=== PATIENT | female | born 1985 | race Hispanic/Latino ===

== ENCOUNTER 2023-04-26 18:21 | Emergency (ER) | payer MEDICAID ==
[~2023-04-26] VITALS: Ht 162.6 cm; Wt 68.0 kg
[2023-04-26 21:27] LABS: BASOPHILS # (AUTO) 0.04 K/uL (0.00-0.20); BASOPHILS % (AUTO) 0.4 % (0.0-5.0); HEMATOCRIT 32.8 % (36-48); IMMATURE GRANULOCYTE ABSOLUTE 0.03 K/uL (0-1); LYMPHOCYTES # (AUTO) 1.9 K/uL (1.0-4.8); LYMPHOCYTES % (AUTO) 19.5 % (21.0-51.0); MEAN CORPUSCULAR HEMOGLOBIN 31.4 pg (27.0-33.0); MEAN CORPUSCULAR HGB CONC 34.5 g/dL (32.0-36.0); MEAN CORPUSCULAR VOLUME 91.1 fL (79-99); MONOCYTES # (AUTO) 0.7 K/uL (0.1-1.0); MONOCYTES % (AUTO) 7.3 % (3.0-13.0); NEUTROPHILS # (AUTO) 6.9 K/uL (1.8-7.7); NEUTROPHILS % (AUTO) 72.5 % (40.0-77.0); PLATELET COUNT (AUTO) 326 K/uL (130-400); RED CELL DISTRIBUTION WIDTH 13.1 % (11.0-15.5); WHITE BLOOD COUNT (AUTO) 9.5 K/uL (4.8-10.8)
[2023-04-26] MEDS ORDERED: MORPHINE 4 MG SYG IM ONE (21:30)
[2023-04-26] MEDS ORDERED: ONDANSETRON 4MG INJ IVP ONE (21:30)
[2023-04-26 21:38] LABS: CREATININE 0.8 mg/dL (0.5-1.5); POTASSIUM 3.5 mmol/L (3.5-5.1)
[2023-04-26 21:39] LABS: INR < 0.93 (0.85-1.15); PROTHROMBIN TIME 10.7 SEC (9.6-11.6)
[2023-04-26 21:41] LABS: PARTIAL THROMBOPLASTIN TIME 27.6 SEC (26.3-35.5)
[2023-04-26 21:42] LABS: ALBUMIN 3.6 g/dL (3.5-5.0); BILIRUBIN,TOTAL 0.5 mg/dL (0.2-1.0); TOTAL PROTEIN, SERUM 7.1 g/dL (6.0-8.3)
[2023-04-26] MEDS ORDERED: IBUP-1493 PO (22:17)
[2023-04-26] MEDS ORDERED: ACET-2079 PO (22:36)
[2023-04-26 22:47] VITALS: BP 118/72; PULSE 79; RESP 18; O2SAT 98
== END 2023-04-26 22:46 | disposition home or self-care (01) ==
LOC: EDH 18:21
DX: S82.302A Unspecified fracture of lower end of left tibia, initial encounter for closed fracture (principal); W18.39XA Other fall on same level, initial encounter; Y93.89 Activity, other specified; Y92.89 Other specified places as the place of occurrence of the external cause; Y99.8 Other external cause status
CPT/HCPCS: 99284; 96374; 80053; 84703; 84702; 85025; 85610; 85730; 86850; 86900; 86901; 36415; 73610; 73630; 73590; 96372; J2405; J2270

== ENCOUNTER → 2024-01-25 | Outpatient (CLI) | payer MEDICAID ==
[~2024-01-25] MED LIST: ACET-2079 PO; IOHEXOL 350 MG/ML 100ML INFUS..BTL IV ONE
== END | disposition home or self-care (01) ==
LOC: RAH 11:07
PROVIDERS: ATTEND Surgery Surgical Oncology
DX: K57.30 Diverticulosis of large intestine without perforation or abscess without bleeding (principal); R16.0 Hepatomegaly, not elsewhere classified; I70.90 Unspecified atherosclerosis; Z93.3 Colostomy status; Z90.49 Acquired absence of other specified parts of digestive tract
CPT/HCPCS: 74177; Q9967

== ENCOUNTER 2024-10-09 16:54 | Emergency (ER) | payer MEDICAID ==
[~2024-10-09] VITALS: Ht 162.6 cm; Wt 65.8 kg
[~2024-10-09 16:54] MED LIST changes: -IOHEXOL 350 MG/ML 100ML INFUS..BTL IV ONE
--- NOTE | 2024-10-09 18:23 | ERN ---
ED Note History of Present Illness Stated Complaint: RIGHT TOES PAIN Chief Complaint: Toe Pain/Injury Time Seen by MD: 17:05 Dictation: History of present illness: 38-year-old female with past medical history of diverticulitis with perforation status post colostomy presented to ED with complaints of right foot swelling of 1 day duration. As per the patient her right foot hit the furniture yesterday and her 2nd toe was deviated to the right side which she straightened. Right foot has been progressively swelling over time. At present she has a right foot pain of 7/10 in intensity, she feel numbness of right foot. Allergies: Coded Allergies: No Known Drug Allergies (Verified Allergy, 05/21/12) Home Meds Active Scripts Acetaminophen with Codeine (Acetaminophen-Cod #3 Tablet) 300 Mg-30 Mg Tablet, 1 EACH PO TID for pain, #30 TAB Prov:YESSI SORENSEN PAC 04/26/23 Past Medical History Past Medical History: No Pertinent History Surgical History: None Review of System Dictation REVIEW OF SYSTEMS Positive for right foot trauma, right hip was swollen CONSTITUTIONAL: Denies fevers, chills, or night sweats. No unintentional weight loss reported. ENT: No hearing loss, otalgia, otorrhea, rhinitis, rhinorrhea, hoarseness, or sore throat. CARDIOVASCULAR: Denies any exertional angina, dyspnea on exertion, orthopnea, paroxysmal nocturnal dyspnea, palpitations claudication. PULMONARY: Denies any shortness of breath, cough, phlegm / sputum, hemoptysis, pleuritic chest pain. SLEEP: Denies morning headaches, daytime somnolence or napping. Denies difficulty falling asleep, staying asleep, waking from sleep. Denies knowledge of snoring. GASTROINTESTINAL: Denies any type of dysphagia to either liquids or solids. Denies nausea, vomiting, abdominal pain, diarrhea, constipation, blood in stools . NEUROLOGICAL: Denies headache, motor weakness, sensory deficit, vertigo / spinning sensation, gait abnormalities, or tremors. GENITOURINARY: Denies frequency, urgency, nocturia, hematuria or incontinence, low urinary stream, straining to void, urinary intermittency or hesitancy ENDOCRINOLOGY: Denies polyuria, polydipsia, polyphagia or heat / cold intolerance. HEMATOLOGY: Denies thrombophilia / previous clots, or coagulopathy / bleeding disorders. ONCOLOGIC: Denies personal history of malignancy. DERMATOLOGIC: Denies rashes or pruritus. PSYCHIATRIC: Denies any suicidal or homicidal ideation. Denies hallucinations. Initial Vital Sign VS Vital Signs Date Time Temp Pulse Resp B/P (MAP) Pulse Ox O2 Delivery O2 Flow Rate FiO2 10/09/24 16:55 98.1 79 16 122/46 100 Room Air 0 Physical Exam Dictation PHYSICAL EXAM GENERAL APPEARANCE: Well nourished . Awake and alert. Oriented to time, place and person. No acute cardiopulmonary distress. HEENT: Head normocephalic , atraumatic. Sclera anicteric . Pupils are round and reactive. Extraocular movements intact . No conjunctival injection. No nasal congestion. No throat congestion .Oral mucosa moist. NECK: Supple. No JVD. No thyromegaly. No submental, submandibular, pre- /postauricular, occipital or supraclavicular lymphadenopathy. No carotid bruits. CHEST: Normal chest expansion. No Telemetry. LUNGS: Clear to auscultation bilaterally . No rales, rhonchi or any wheezing. Equal tactile fremitus. Resonant to percussion . CARDIOVASCULAR: Regular rate and rhythm. S1 and S2 normal. No rubs, murmurs or gallops. ABDOMEN: Soft, nontender, and nondistended. There is no rebound tenderness, voluntary guarding, or rigidity. Colostomy bag in place NEUROLOGICAL: Cranial nerves II-XII grossly intact. Motor is 5/5 in bilateral upper and lower extremities . No sensory deficits. EXTREMITIES: No edema, No cyanosis , No clubbing. Good capillary refill. SKIN: No skin breakdown. No rashes or lesions . PSYCHIATRY: Normal affect .No auditory or visual hallucinations. Normal speech. No dysarthria. Local examination of right foot: Right foot swelling up to the ankle, nonpitting. Mottling of the skin present. cold to touch . Right Dorsalis pedis arterial , right and left malleolar arterial pulse not palpable. Violaceous discoloration of right 2nd toe. Results (Laboratory/Radiology) X-RAY Comment: Right foot shows 2nd proximal phalanges displaced fracture, 3rd and 4th metatarsal shaft nondisplaced fractures ED Course ED Course Orders Procedure Category Date Status Time Foot Comp 3+Vws Rt RAD 10/09/24 Taken 17:21 Ketorolac PHA 10/09/24 Complete Tromethamine 30mg/Ml 17:30 ,Urine Test LAB 10/09/24 Logged 17:21 Cardiac Panel LAB 10/09/24 In Process 17:21 *Nursing CPOE 10/09/24 Transmitted Communication: 18:05 Current Medications Medications (Trade) Dose Ordered Sig/Hamzah Route PRN Reason Start Time Stop Time Status Last Admin Dose Admin Ketorolac Tromethamine (toRADol) 30 mg ONCE ONCE IVP 10/09/24 17:30 10/09/24 17:31 DC Vital Signs Date Time Temp Pulse Resp B/P (MAP) Pulse Ox O2 Delivery O2 Flow Rate FiO2 10/09/24 16:55 98.1 79 16 122/46 100 Room Air 0 Medical Decision Making MDM Differential diagnosis : Right 2nd toe fracture, compartment syndrome right foot Rationale: Tests considered and ordered secondary to shared decision making include: I will re-evaluate the patient after treatment and diagnostic exams have returned to determine whether they require further testing, can be safely discharged home, or need admission for further treatment and evaluation. Given the social determinants of health affecting care, including literacy, access to medical care, prescription drug management, and [id number] drugs, I will ensure that treatment plans are tailored accordingly. There are no social concerns with this patient. Risk of complication and/or morbidity or mortality of patient management: None Need for hospitalization: Patient does not meet criteria for hospitalization. Need for emergency major/minor surgery: No Prescription drug management Prescriptions will include symptomatic care Medications-Per medication reconciliation Previous outside records reviewed: Old ER visits. Patient's prior external medical records from other ER visits were reviewed by me as indicated. Prior testing and results from previous visits were reviewed. Prior tests were taken into account with medical decision making and resource utilization, independent historian/historians were used to obtain complete medical history. I independently interpreted the test that were performed, results were reviewed by me and considered findings on radiology. Medical management and examination interpretation discussions was done by me with other qualified healthcare professionals as indicated for the patient's care. Revaluation: Patient presented with right foot swelling. X-ray right foot showed multiple fractures. Patient is placed on a hard rt foot boot . She is required to follow up with orthopedician as outpatient Disposition : Discharge home DX & DISP Disposition: Discharge Departure Impression: Primary Impression: Fracture of second toe, right, closed Additional Impression: Fracture of metatarsal of right foot, closed Condition: Stable Scripts Meloxicam (Meloxicam) 15 Mg Tablet 15 MG PO DAILY PRN for PAIN for 10 Days, #10 TAB Prov: JONI ARMSTRONG DO 10/09/24 Hydrocodone/Acetaminophen (Hydrocodon-Acetaminophen 5-325) 5 Mg-325 Mg Tablet 1 TAB PO TIDP PRN for pain for 5 Days, #20 TAB 0 Refills Prov: JONI ARMSTRONG DO 10/09/24 Additional Instructions: You have fractures in your 2nd, 3rd, and 4th toes. Wear the hard boot that you have been provided. You will need to follow up with the orthopedist. I have given you a referral to Dr. Hyde. Call for an appointment. I have prescribed [place] and meloxicam to use for pain. Return to your nearest emergency room if symptoms worsen or if there is no improvement. Call 911 if you need immediate assistance. Referrals: SELF,REFERRAL (PCP) CHAO RODRIGUEZ MD I performed a substantive portion of the visit. I have reviewed and personally made and approve the management plan that is documented in the notes by myself with SHIRIN/resident. I acknowledged full responsibility for the patient's management plan. SEGUNDO KAY MD Oct 09, 2024 18:22 JONI ARMSTRONG DO Oct 09, 2024 18:48
--- NOTE | 2024-10-09 18:35 | NUR ---
PT MOVED FORM LOBBY INTO FAST TRACK AOX4. AMBULATORY SLOW WITH PAIN
[2024-10-09] MEDS ORDERED: HYDR-4060 PO (18:46)
[2024-10-09] MEDS ORDERED: MELO-108 PO (18:46)
--- NOTE | 2024-10-09 18:47 | HMCIMG ---
RIGHT FOOT RADIOGRAPHS - 3 VIEWS INDICATION: Second toe injury COMPARISON: None FINDINGS: AP, lateral, and oblique views. Nondisplaced comminuted third and fourth metatarsal neck fractures and slightly displaced transverse fracture through the proximal shaft of the second proximal phalanx without joint subluxation. Midfoot alignment is well maintained. No radiopaque foreign body noted. IMPRESSION: Nondisplaced comminuted third and fourth metatarsal neck fractures and slightly displaced transverse fracture through the proximal shaft of the second proximal phalanx without joint subluxation.
[2024-10-09] MEDS: HYDROcodone/APAP 5/325 1 TAB TABLET PO ONE (19:19)
[2024-10-09] MEDS: ketOROlac 30MG VIAL (30MG/ML) IVP ONE (19:19)
[2024-10-09 19:45] VITALS: BP 118/93; PULSE 76; RESP 16; TEMP 98.1; O2SAT 100
== END 2024-10-09 19:50 | disposition home or self-care (01) ==
LOC: EDH 16:54
DX: S92.331A Displaced fracture of third metatarsal bone, right foot, initial encounter for closed fracture (principal); S92.341A Displaced fracture of fourth metatarsal bone, right foot, initial encounter for closed fracture; Z79.899 Other long term (current) drug therapy; X58.XXXA Exposure to other specified factors, initial encounter; Y93.89 Activity, other specified; Y92.89 Other specified places as the place of occurrence of the external cause; Y99.8 Other external cause status
CPT/HCPCS: 99284; 96374; 29515; 82550; 84484; 36415; 73630; J1885